=== PATIENT | male | born 1980 | race African-American/Black ===

== ENCOUNTER 2020-03-13 16:17 | Emergency (ER) | payer MEDICAID ==
[~2020-03-13] VITALS: Ht 175.3 cm; Wt 971.7 kg
[2020-03-13 16:56] VITALS: BP 128/70
== END 2020-03-13 17:05 | disposition home or self-care (01) ==
LOC: ER 16:17
DX: B34.9 Viral infection, unspecified (principal); R05 Cough; F12.10 Cannabis abuse, uncomplicated
CPT/HCPCS: 99283

== ENCOUNTER 2020-06-21 20:32 | Emergency (ER) | payer MEDICAID ==
[~2020-06-21] VITALS: Ht 172.7 cm; Wt 80.0 kg
[2020-06-22 00:39] LABS: BASOPHILS % 0.4 % (0.0-2.0); CHLORIDE 101 mEq/L (98-107); EOSINOPHILS % 0.7 % (0.0-5.0); HEMATOCRIT. 45.2 % (42.0-52.0); HEMOGLOBIN. 15.1 g/dL (14.0-18.0); LYMPHOCYTES % 24.2 % (20.0-50.0); MEAN CORPUSCULAR HEMOGLOBIN 28.5 pg (28.0-32.0); MEAN CORPUSCULAR VOLUME 85.4 fL (80.0-94.0); MEAN PLATELET VOLUME 7.9 fl (7.4-10.4); MONOCYTES % 12.1 % (2.0-8.0); NEUTROPHILS % 62.6 % (40.0-76.0); PLATELET 243 x1000/uL (130-400); RED BLOOD CELL COUNT 5.29 mill/uL (4.7-6.1); RED CELL DISTRIBUTION WIDTH 15.6 % (11.6-14.6)
[2020-06-22 00:44] LABS: ETHANOL BLOOD < 10 mg/dL
[2020-06-22 07:03] LABS: CLARITY URINE CLEAR (CLEAR); COLOR URINE YELLOW (YELLOW); KETONES URINE 1+ (NEGATIVE); LEUKOCYTE ESTERASE URINE NEGATIVE (NEGATIVE); NITRITE URINE NEGATIVE (NEGATIVE); OCCULT BLOOD URINE NEGATIVE (NEGATIVE); PROTEIN URINE NEGATIVE (NEGATIVE); SPECIFIC GRAVITY URINE 1.018 (1.005-1.030)
[2020-06-22 07:22] LABS: *AMPHETAMINES SCREEN URINE NEGATIVE (NEGATIVE); *BARBITURATES SCREEN URINE NEGATIVE (NEGATIVE); *BENZODIAZEPINES SCREEN URINE NEGATIVE (NEGATIVE); *COCAINE SCREEN URINE NEGATIVE (NEGATIVE); CANNABINOID URINE SCREEN PRESUMTIVE POSITIVE (NEGATIVE); METHADONE URINE SCREEN NEGATIVE (NEGATIVE); OPIATES URINE SCREEN NEGATIVE (NEGATIVE); PHENCYCLIDINE URINE SCREEN PRESUMTIVE POSITIVE (NEGATIVE)
[2020-06-22 07:52] VITALS: BP 123/74
== END 2020-06-22 11:04 | disposition home or self-care (01) ==
LOC: ER 20:32
DX: Z00.8 Encounter for other general examination (principal); F19.10 Other psychoactive substance abuse, uncomplicated
CPT/HCPCS: 36415; 80053; 80305; 80307; 80320; 80329; 81003; 85025; 93005; 99284; G0480

== ENCOUNTER 2021-05-16 21:48 | Emergency (ER) | payer MEDICAID ==
[~2021-05-16] VITALS: Ht 175.3 cm; Wt 82.0 kg
[2021-05-16] MEDS ORDERED: HALOPERIDOL LACTATE 5MG/ML VIAL IM STA (22:34)
[2021-05-16] MEDS ORDERED: LORAZEPAM 2MG/ML CPJ IM STA (22:34)
[2021-05-16] MEDS ORDERED: DIPHENHYDRAMINE 50MG/ML VIAL IM STA (22:34)
[2021-05-16 23:43] LABS: CHLORIDE 106 mEq/L (98-107)
[2021-05-16 23:43] LABS: CLARITY URINE CLEAR (CLEAR); COLOR URINE YELLOW (YELLOW); KETONES URINE NEGATIVE (NEGATIVE); LEUKOCYTE ESTERASE URINE TRACE (NEGATIVE); NITRITE URINE NEGATIVE (NEGATIVE); OCCULT BLOOD URINE 1+ (NEGATIVE); PROTEIN URINE NEGATIVE (NEGATIVE); SPECIFIC GRAVITY URINE 1.012 (1.005-1.030)
[2021-05-16] MEDS ORDERED: LORAZEPAM 2MG/ML CPJ IV ONE (23:45)
[2021-05-16 23:48] LABS: ETHANOL BLOOD < 10 mg/dL
[2021-05-16 23:59] LABS: *AMPHETAMINES SCREEN URINE NEGATIVE (NEGATIVE); *BARBITURATES SCREEN URINE NEGATIVE (NEGATIVE); *BENZODIAZEPINES SCREEN URINE NEGATIVE (NEGATIVE)
[2021-05-17] LABS: *COCAINE SCREEN URINE NEGATIVE (NEGATIVE); CANNABINOID URINE SCREEN NEGATIVE (NEGATIVE); OPIATES URINE SCREEN NEGATIVE (NEGATIVE); PHENCYCLIDINE URINE SCREEN PRESUMTIVE POSITIVE (NEGATIVE)
[2021-05-17 00:02] LABS: METHADONE URINE SCREEN NEGATIVE (NEGATIVE)
[2021-05-17 00:18] LABS: BASOPHILS % 0.9 % (0.0-2.0); EOSINOPHILS % 2.1 % (0.0-5.0); HEMATOCRIT. 43.7 % (42.0-52.0); HEMOGLOBIN. 14.5 g/dL (14.0-18.0); LYMPHOCYTES % 36.7 % (20.0-50.0); MEAN CORPUSCULAR HEMOGLOBIN 28.4 pg (28.0-32.0); MONOCYTES % 9.5 % (2.0-8.0); NEUTROPHILS % 50.8 % (40.0-76.0); PLATELET 255 x1000/uL (130-400); RED BLOOD CELL COUNT 5.09 mill/uL (4.7-6.1); RED CELL DISTRIBUTION WIDTH 14.3 % (11.6-14.6)
[2021-05-17 09:50] VITALS: BP 112/86
== END 2021-05-17 09:51 | disposition home or self-care (01) ==
LOC: ER 21:48
DX: R56.9 Unspecified convulsions (principal)
CPT/HCPCS: 36415; 70450; 71045; 80053; 80305; 80307; 80320; 80329; 81003; 85025; 93005; 96372; 96374; 99285; J1200; J1630; J2060; Z7610; G0480

== ENCOUNTER 2021-05-17 15:34 | Emergency (ER) | payer MEDICAID ==
[~2021-05-17] VITALS: Ht 175.3 cm; Wt 65.0 kg
[2021-05-17 15:38] VITALS: BP 110/60
== END 2021-05-17 22:22 | disposition home or self-care (01) ==
LOC: ER 15:34
DX: Z00.00 Encounter for general adult medical examination without abnormal findings (principal); R46.2 Strange and inexplicable behavior; R56.9 Unspecified convulsions
CPT/HCPCS: 99281

== ENCOUNTER 2021-05-17 22:29 | Emergency (ER) | payer MEDICAID ==
[~2021-05-17] VITALS: Ht 182.9 cm; Wt 64.0 kg
[2021-05-17] MEDS ORDERED: LORAZEPAM 2MG/ML CPJ IV PRN (23:00)
[2021-05-17 23:22] LABS: BASOPHILS % 0.7 % (0.0-2.0); EOSINOPHILS % 2.2 % (0.0-5.0); HEMATOCRIT. 44.3 % (42.0-52.0); HEMOGLOBIN. 14.7 g/dL (14.0-18.0); MEAN CORPUSCULAR HEMOGLOBIN 28.6 pg (28.0-32.0); MEAN CORPUSCULAR VOLUME 86.6 fL (80.0-94.0); MEAN PLATELET VOLUME 7.7 fl (7.4-10.4); MONOCYTES % 7.9 % (2.0-8.0); NEUTROPHILS % 57.2 % (40.0-76.0); PLATELET 259 x1000/uL (130-400); RED BLOOD CELL COUNT 5.11 mill/uL (4.7-6.1); RED CELL DISTRIBUTION WIDTH 14.2 % (11.6-14.6)
[2021-05-17 23:29] LABS: CHLORIDE 104 mEq/L (98-107)
[2021-05-17 23:33] LABS: ETHANOL BLOOD < 10 mg/dL
[2021-05-17 23:46] LABS: CLARITY URINE CLEAR (CLEAR); COLOR URINE YELLOW (YELLOW); KETONES URINE NEGATIVE (NEGATIVE); LEUKOCYTE ESTERASE URINE NEGATIVE (NEGATIVE); NITRITE URINE NEGATIVE (NEGATIVE); OCCULT BLOOD URINE NEGATIVE (NEGATIVE); PROTEIN URINE NEGATIVE (NEGATIVE); SPECIFIC GRAVITY URINE 1.021 (1.005-1.030); UROBILINOGEN URINE 0.2 E.U./dL (0.2-1.0)
[2021-05-18 00:16] LABS: *BENZODIAZEPINES SCREEN URINE NEGATIVE (NEGATIVE); *COCAINE SCREEN URINE NEGATIVE (NEGATIVE); CANNABINOID URINE SCREEN NEGATIVE (NEGATIVE); METHADONE URINE SCREEN NEGATIVE (NEGATIVE); OPIATES URINE SCREEN NEGATIVE (NEGATIVE); PHENCYCLIDINE URINE SCREEN PRESUMTIVE POSITIVE (NEGATIVE)
[2021-05-18 00:31] LABS: *AMPHETAMINES SCREEN URINE NEGATIVE (NEGATIVE); *BARBITURATES SCREEN URINE NEGATIVE (NEGATIVE)
[2021-05-18 21:04] VITALS: BP 105/56
== END 2021-05-18 21:01 | disposition home or self-care (01) ==
LOC: ER 22:29
DX: R41.82 Altered mental status, unspecified (principal); G93.40 Encephalopathy, unspecified; R56.9 Unspecified convulsions; Z20.822 Contact with and (suspected) exposure to COVID-19
CPT/HCPCS: 36415; 80053; 80305; 80307; 80320; 80329; 81003; 85025; 87426; 93005; 99285; G0480

== ENCOUNTER → 2021-05-17 | Emergency (ER) | payer MEDICAID | END | disposition left against medical advice (07) | LOC: ER 12:18 | DX: Z53.21 Procedure and treatment not carried out due to patient leaving prior to being seen by health care provider (principal) ==

== ENCOUNTER 2021-09-06 18:51 | Emergency (ER) | payer MEDICAID ==
[~2021-09-06] VITALS: Ht 180.3 cm; Wt 84.0 kg
[2021-09-06] MEDS ORDERED: HYDROCODONE/ACETAMINOPHEN 10/325MG TABLET PO ONE (19:30)
[2021-09-06] MEDS ORDERED: IBUPROFEN 600MG TABLET PO ONE (19:30)
[2021-09-06] MEDS ORDERED: IBUP-2029 MT (21:40)
[2021-09-06 22:00] VITALS: BP 131/75
== END 2021-09-06 22:00 | disposition home or self-care (01) ==
LOC: ER 18:51
DX: S00.81XA Abrasion of other part of head, initial encounter (principal); S83.8X1A Sprain of other specified parts of right knee, initial encounter; G40.909 Epilepsy, unspecified, not intractable, without status epilepticus; I51.9 Heart disease, unspecified; F14.10 Cocaine abuse, uncomplicated; F11.10 Opioid abuse, uncomplicated; V18.0XXA Pedal cycle driver injured in noncollision transport accident in nontraffic accident, initial encounter; Y93.89 Activity, other specified; Y92.488 Other paved roadways as the place of occurrence of the external cause
CPT/HCPCS: 73562; 99283

== ENCOUNTER 2021-11-23 07:00 | Emergency (ER) | payer MEDICAID ==
[~2021-11-23] VITALS: Ht 175.3 cm; Wt 78.0 kg
[~2021-11-23 07:00] MED LIST: IBUP-2029 MT
[2021-11-23 07:08] VITALS: BP 149/87
[2021-11-23 07:54] LABS: BASOPHILS % 0.7 % (0.0-2.0); CHLORIDE 107 mEq/L (98-107); EOSINOPHILS % 0.4 % (0.0-5.0); HEMATOCRIT. 43.8 % (42.0-52.0); HEMOGLOBIN. 14.1 g/dL (14.0-18.0); LYMPHOCYTES % 28.6 % (20.0-50.0); MEAN CORPUSCULAR HEMOGLOBIN 27.3 pg (28.0-32.0); MEAN CORPUSCULAR VOLUME 84.5 fL (80.0-94.0); MEAN PLATELET VOLUME 7.9 fl (7.4-10.4); MONOCYTES % 7.9 % (2.0-8.0); NEUTROPHILS % 62.4 % (40.0-76.0); PLATELET 221 x1000/uL (130-400); RED BLOOD CELL COUNT 5.18 mill/uL (4.7-6.1); RED CELL DISTRIBUTION WIDTH 14.5 % (11.6-14.6)
[2021-11-23 08:00] LABS: ETHANOL BLOOD < 10 mg/dL
[2021-11-23 08:25] LABS: CLARITY URINE CLEAR (CLEAR); COLOR URINE YELLOW (YELLOW); KETONES URINE 2+ (NEGATIVE); LEUKOCYTE ESTERASE URINE NEGATIVE (NEGATIVE); NITRITE URINE NEGATIVE (NEGATIVE); OCCULT BLOOD URINE NEGATIVE (NEGATIVE); PROTEIN URINE NEGATIVE (NEGATIVE)
[2021-11-23 08:43] LABS: *AMPHETAMINES SCREEN URINE NEGATIVE (NEGATIVE); *BARBITURATES SCREEN URINE NEGATIVE (NEGATIVE); *BENZODIAZEPINES SCREEN URINE NEGATIVE (NEGATIVE)
[2021-11-23 08:44] LABS: *COCAINE SCREEN URINE NEGATIVE (NEGATIVE); CANNABINOID URINE SCREEN NEGATIVE (NEGATIVE); METHADONE URINE SCREEN NEGATIVE (NEGATIVE); OPIATES URINE SCREEN NEGATIVE (NEGATIVE); PHENCYCLIDINE URINE SCREEN PRESUMTIVE POSITIVE (NEGATIVE)
== END 2021-11-23 08:55 | disposition home or self-care (01) ==
LOC: ER 07:00
DX: R55 Syncope and collapse (principal); F14.10 Cocaine abuse, uncomplicated; Z86.59 Personal history of other mental and behavioral disorders
CPT/HCPCS: 36415; 71045; 80053; 80305; 80320; 81003; 83880; 84484; 85025; 93005; 99285; Z7610; G0480

== ENCOUNTER 2021-12-03 20:34 | Emergency (ER) | payer MEDICAID ==
[~2021-12-03] VITALS: Ht 170.2 cm; Wt 86.0 kg
[2021-12-03 20:40] VITALS: BP 128/87
[2021-12-03] MEDS ORDERED: IBUPROFEN 400MG TABLET PO ONE (21:00)
[2021-12-03] MEDS ORDERED: IBUP-2028 MT (22:10)
== END 2021-12-03 22:35 | disposition home or self-care (01) ==
LOC: ER 20:34
DX: M25.511 Pain in right shoulder (principal); G40.909 Epilepsy, unspecified, not intractable, without status epilepticus; I51.9 Heart disease, unspecified; F14.10 Cocaine abuse, uncomplicated; F11.10 Opioid abuse, uncomplicated
CPT/HCPCS: 73030; 99283; A4565

== ENCOUNTER 2021-12-04 00:10 | Emergency (ER) | payer MEDICAID ==
[~2021-12-04] VITALS: Ht 188 cm; Wt 97.0 kg
[~2021-12-04 00:10] MED LIST changes: +IBUP-2028 MT
[2021-12-04 00:25] VITALS: BP 145/89
[2021-12-04] MEDS ORDERED: ACETAMINOPHEN 325MG TABLET PO ONE (03:00)
== END 2021-12-04 03:50 | disposition home or self-care (01) ==
LOC: ER 00:10
DX: S62.92XA Unspecified fracture of left hand, initial encounter for closed fracture (principal); X58.XXXA Exposure to other specified factors, initial encounter; Y93.89 Activity, other specified; Y92.89 Other specified places as the place of occurrence of the external cause; Y99.8 Other external cause status
CPT/HCPCS: 73130; 99283

== ENCOUNTER 2022-04-24 17:15 | Emergency (ER) | payer MEDICAID, OTHER ==
[~2022-04-24] VITALS: Ht 175.3 cm; Wt 80.0 kg
[2022-04-24 17:17] VITALS: BP 126/58
[2022-04-24] MEDS ORDERED: LORAZEPAM 2MG/ML CPJ IV STA (18:42)
[2022-04-24] MEDS ORDERED: SODIUM CHLORIDE 0.9% 1,000 ML IV ONE (18:45)
== END 2022-04-24 22:00 | disposition left against medical advice (07) ==
LOC: ER 17:15
DX: F16.10 Hallucinogen abuse, uncomplicated (principal); G93.40 Encephalopathy, unspecified; Z59.00 Homelessness unspecified
CPT/HCPCS: 99283; J7030

== ENCOUNTER 2022-06-21 03:37 | Emergency (ER) | payer MEDICAID, OTHER ==
[~2022-06-21] VITALS: Ht 175.3 cm; Wt 73.0 kg
[2022-06-21 04:00] VITALS: BP 126/78
[2022-06-21] MEDS ORDERED: IBUP-2029 MT (11:01)
== END 2022-06-21 04:00 | disposition home or self-care (01) ==
LOC: ER 03:37
DX: H10.213 Acute toxic conjunctivitis, bilateral (principal); F19.10 Other psychoactive substance abuse, uncomplicated
CPT/HCPCS: 99283

== ENCOUNTER 2022-06-21 04:45 | Emergency (ER) | payer OTHER ==
[~2022-06-21] VITALS: Ht 182.9 cm; Wt 95.0 kg
[2022-06-21] MEDS ORDERED: KETOROLAC 60MG/2ML VIAL IM ONE (10:45)
[2022-06-21] MEDS ORDERED: IBUP-2029 MT (11:01)
[2022-06-21 11:08] VITALS: BP 115/70
== END 2022-06-21 11:19 | disposition home or self-care (01) ==
LOC: ER 04:45
DX: M25.551 Pain in right hip (principal); Z90.49 Acquired absence of other specified parts of digestive tract; W18.30XA Fall on same level, unspecified, initial encounter; Y93.89 Activity, other specified; Y92.89 Other specified places as the place of occurrence of the external cause; Y99.8 Other external cause status
CPT/HCPCS: 72170; 73552; 96372; 99284; J1885

== ENCOUNTER 2023-08-07 17:45 | Emergency (ER) | payer OTHER ==
[~2023-08-07] VITALS: Ht 177.8 cm; Wt 86.0 kg
[2023-08-07 17:53] VITALS: BP 142/80; O2SAT 100
[2023-08-08 00:38] VITALS: PULSE 68; RESP 16; TEMP 98.2
== END 2023-08-08 00:40 | disposition home or self-care (01) ==
LOC: ER 17:45
DX: S00.81XA Abrasion of other part of head, initial encounter (principal); S00.01XA Abrasion of scalp, initial encounter; M54.2 Cervicalgia; F14.90 Cocaine use, unspecified, uncomplicated; F11.90 Opioid use, unspecified, uncomplicated; F10.20 Alcohol dependence, uncomplicated; Z90.49 Acquired absence of other specified parts of digestive tract; Z79.899 Other long term (current) drug therapy; W19.XXXA Unspecified fall, initial encounter; Y93.89 Activity, other specified; Y92.815 Train as the place of occurrence of the external cause; Y99.8 Other external cause status; Y90.9 Presence of alcohol in blood, level not specified
CPT/HCPCS: 73130; 99284

== ENCOUNTER 2023-08-08 03:55 | Emergency (ER) | payer OTHER ==
[~2023-08-08] VITALS: Ht 182.9 cm; Wt 87.0 kg
[2023-08-08 03:59] VITALS: TEMP 97.8; O2SAT 99
[2023-08-08 07:30] VITALS: BP 122/92; PULSE 77; RESP 20
[2023-08-08] MEDS ORDERED: KETOROLAC 60MG/2ML VIAL IM ONE (07:30)
== END 2023-08-08 07:48 | disposition home or self-care (01) ==
LOC: ER 03:55
DX: M25.50 Pain in unspecified joint (principal); F14.10 Cocaine abuse, uncomplicated; Z90.49 Acquired absence of other specified parts of digestive tract
CPT/HCPCS: 96372; 99283; J1885; Z7610

== ENCOUNTER 2023-08-19 19:02 | Emergency (ER) | payer OTHER ==
[~2023-08-19] VITALS: Ht 175.3 cm; Wt 77.0 kg
[2023-08-19 19:16] VITALS: BP 140/83; PULSE 90; RESP 18; TEMP 98.3; O2SAT 100
== END 2023-08-19 22:00 | disposition left against medical advice (07) ==
LOC: ER 21:43
DX: R10.819 Abdominal tenderness, unspecified site (principal); R10.9 Unspecified abdominal pain
CPT/HCPCS: 99283

== ENCOUNTER 2023-08-20 00:42 | Emergency (ER) | payer OTHER ==
[~2023-08-20] VITALS: Ht 170.2 cm; Wt 83.0 kg
[2023-08-20 00:58] VITALS: O2SAT 97
[2023-08-20 01:21] LABS: BASOPHILS % 0.5 % (0.0-2.0); EOSINOPHILS % 1.4 % (0.0-5.0); HEMATOCRIT. 39.6 % (42.0-52.0); HEMOGLOBIN. 12.9 g/dL (14.0-18.0); LYMPHOCYTES % 26.5 % (20.0-50.0); MEAN CORPUSCULAR HEMOGLOBIN 27.8 pg (28.0-32.0); MEAN CORPUSCULAR HGB CONC 32.6 g/dL (31.0-37.0); MEAN CORPUSCULAR VOLUME 85.1 fL (80.0-94.0); MEAN PLATELET VOLUME 7.7 fl (7.4-10.4); MONOCYTES % 13.2 % (2.0-8.0); NEUTROPHILS % 58.4 % (40.0-76.0); PLATELET 252 x1000/uL (130-400); RED BLOOD CELL COUNT 4.66 mill/uL (4.7-6.1); RED CELL DISTRIBUTION WIDTH 15.1 % (11.6-14.6); WHITE BLOOD COUNT 9.7 x1000/uL (4.5-11.0)
[2023-08-20 01:35] LABS: CHLORIDE 108 mEq/L (98-107); INDEX HEMOLYSI 1 (1-3); INDEX ICTERIC 1 (1-4); INDEX LIPEMIC 1 (1-3); POTASSIUM 3.3 mEq/L (3.5-5.1); SODIUM 139 mEq/L (136-145)
[2023-08-20 01:42] LABS: ALANINE AMINOTRANSFERASE 249 IU/L (13-61); ALBUMIN 3.3 g/dL (3.4-5.0); ASPARTATE AMINOTRANSFERASE 86 IU/L (15-37); BILIRUBIN TOTAL 0.3 mg/dL (0.1-1.0); CALCIUM 8.2 mg/dL (8.5-10.1); CARBON DIOXIDE 27 mEq/L (21-32); CREATININE 0.7 mg/dL (0.6-1.3); GLUCOSE 96 mg/dL (70-105); PROTEIN TOTAL 6.9 g/dL (6.0-8.3); UREA NITROGEN BLOOD 15 mg/dL (7-21)
[2023-08-20] MEDS ORDERED: ONDANSETRON HCL 4MG/2ML INJ IV ONE (03:30)
[2023-08-20] MEDS ORDERED: MORPHINE SULFATE 4 MG/ML CPJ (NOT FOR IM USE) IV ONE (03:30)
[2023-08-20 03:43] LABS: CLARITY URINE CLEAR (CLEAR); COLOR URINE DARK YELLOW (YELLOW); GLUCOSE URINE NEGATIVE (NEGATIVE); KETONES URINE NEGATIVE (NEGATIVE); LEUKOCYTE ESTERASE URINE NEGATIVE (NEGATIVE); NITRITE URINE NEGATIVE (NEGATIVE); OCCULT BLOOD URINE NEGATIVE (NEGATIVE); PH URINE 5.5 (4.5-8.0); PROTEIN URINE TRACE (NEGATIVE); SPECIFIC GRAVITY URINE 1.034 (1.005-1.030)
[2023-08-20 03:46] LABS: BACTERIA URINE NONE SEEN; RBC URINE 0-2 /hpf (0-2); SQUAMOUS EPITHELIAL CELL URINE NONE SEEN /lpf (RARE/1+); WBC URINE 0-2 /hpf (0-2); YEAST URINE NONE SEEN
[2023-08-20] MEDS ORDERED: DIATR MEGLU/DIATRIZOATE SOLN 30ML ONE (05:30)
[2023-08-20] MEDS ORDERED: MORPHINE SULFATE 4 MG/ML CPJ (NOT FOR IM USE) IV NR (06:00)
[2023-08-20] MEDS ORDERED: KCL 20MEQ/100ML PREMIX 100 ML IV NR (06:00)
[2023-08-20 10:34] VITALS: BP 117/89; PULSE 68; RESP 20; TEMP 98
[2023-08-20] MEDS ORDERED: IOHEXOL-300 100 ML BOTTLE ONE (11:56)
== END 2023-08-20 10:51 | disposition short-term general hospital (02) ==
LOC: ER 01:29 → CANBEDREQ 09:41 → ER 10:51
DX: R10.9 Unspecified abdominal pain (principal); E87.6 Hypokalemia; R74.01 Elevation of levels of liver transaminase levels; E78.00 Pure hypercholesterolemia, unspecified; F14.10 Cocaine abuse, uncomplicated
CPT/HCPCS: 80053; 81003; 83690; 85025; 36415; 74176; 74177; 76705; 96365; 96375; 96376; 99285; Q9967; J2405; J3480; J2270; Q9963; Z7610 ×3

== ENCOUNTER 2023-08-25 17:49 | Emergency (ER) | payer OTHER ==
[~2023-08-25] VITALS: Ht 180.3 cm; Wt 79.0 kg
[2023-08-25 17:54] VITALS: O2SAT 98
[2023-08-25 20:25] LABS: BASOPHILS % 0.5 % (0.0-2.0); EOSINOPHILS % 2.5 % (0.0-5.0); HEMATOCRIT. 42.2 % (42.0-52.0); HEMOGLOBIN. 13.9 g/dL (14.0-18.0); LYMPHOCYTES % 31.8 % (20.0-50.0); MEAN CORPUSCULAR HEMOGLOBIN 28.2 pg (28.0-32.0); MEAN CORPUSCULAR HGB CONC 32.8 g/dL (31.0-37.0); MEAN CORPUSCULAR VOLUME 85.8 fL (80.0-94.0); MEAN PLATELET VOLUME 7.7 fl (7.4-10.4); MONOCYTES % 8.8 % (2.0-8.0); NEUTROPHILS % 56.4 % (40.0-76.0); PLATELET 304 x1000/uL (130-400); RED BLOOD CELL COUNT 4.92 mill/uL (4.7-6.1); RED CELL DISTRIBUTION WIDTH 15.5 % (11.6-14.6); WHITE BLOOD COUNT 8.6 x1000/uL (4.5-11.0)
[2023-08-25 20:32] LABS: CHLORIDE 107 mEq/L (98-107); INDEX HEMOLYSI 1 (1-3); INDEX ICTERIC 1 (1-4); INDEX LIPEMIC 1 (1-3); POTASSIUM 3.6 mEq/L (3.5-5.1); SODIUM 138 mEq/L (136-145)
[2023-08-25 20:35] LABS: INR 0.9; PROTHROMBIN TIME 10.1 sec (9.6-11.0)
[2023-08-25 20:42] LABS: ALANINE AMINOTRANSFERASE 159 IU/L (13-61); ALBUMIN 3.6 g/dL (3.4-5.0); ASPARTATE AMINOTRANSFERASE 74 IU/L (15-37); BILIRUBIN TOTAL 0.4 mg/dL (0.1-1.0); CALCIUM 9.1 mg/dL (8.5-10.1); CARBON DIOXIDE 27 mEq/L (21-32); CREATININE 0.8 mg/dL (0.6-1.3); ETHANOL BLOOD < 10 mg/dL (<10); GLUCOSE 93 mg/dL (70-105); PROTEIN TOTAL 7.4 g/dL (6.0-8.3); UREA NITROGEN BLOOD 14 mg/dL (7-21)
[2023-08-25] MEDS ORDERED: KETOROLAC 15MG/ML VIAL IV ONE (20:45)
[2023-08-25] MEDS ORDERED: ONDANSETRON HCL 4MG/2ML INJ IV STA (20:45)
[2023-08-25] MEDS ORDERED: KETOROLAC 30MG/ML VIAL IV NR (21:00)
[2023-08-25] MEDS ORDERED: SODIUM CHLORIDE 0.9% 1,000 ML IV ONE (21:15)
[2023-08-25 23:46] LABS: CLARITY URINE CLEAR (CLEAR); COLOR URINE YELLOW (YELLOW); GLUCOSE URINE NEGATIVE (NEGATIVE); KETONES URINE NEGATIVE (NEGATIVE); LEUKOCYTE ESTERASE URINE NEGATIVE (NEGATIVE); NITRITE URINE NEGATIVE (NEGATIVE); OCCULT BLOOD URINE NEGATIVE (NEGATIVE); PH URINE 5.5 (4.5-8.0); PROTEIN URINE NEGATIVE (NEGATIVE); SPECIFIC GRAVITY URINE 1.028 (1.005-1.030)
[2023-08-25 23:56] LABS: *AMPHETAMINES SCREEN URINE NEGATIVE (NEGATIVE); *BARBITURATES SCREEN URINE NEGATIVE (NEGATIVE); *BENZODIAZEPINES SCREEN URINE NEGATIVE (NEGATIVE); *COCAINE SCREEN URINE NEGATIVE (NEGATIVE); CANNABINOID URINE SCREEN PRESUMTIVE POSITIVE (NEGATIVE); ECSTASY MDMA SCREEN URINE NEGATIVE (NEGATIVE); OPIATES URINE SCREEN NEGATIVE (NEGATIVE); PHENCYCLIDINE URINE SCREEN PRESUMTIVE POSITIVE (NEGATIVE)
[2023-08-26 00:14] VITALS: BP 133/79; PULSE 81; RESP 18; TEMP 98.2
[2023-08-26] MEDS ORDERED: ONDANSETRON HCL 4MG/2ML INJ IV NR (00:15)
== END 2023-08-26 00:33 | disposition short-term general hospital (02) ==
LOC: ER 17:59
DX: R10.84 Generalized abdominal pain (principal); R11.10 Vomiting, unspecified; R19.7 Diarrhea, unspecified; E78.00 Pure hypercholesterolemia, unspecified; Z79.899 Other long term (current) drug therapy
CPT/HCPCS: 80053; 80305; 81003; 80320; 83690; 85025; 85610; 36415; 74176; 99285; 96374; 96375; J7030; J1885; J2405; G0480

== ENCOUNTER 2023-10-19 23:09 | Emergency (ER) | payer OTHER ==
[~2023-10-19] VITALS: Ht 180.3 cm; Wt 86.0 kg
[2023-10-19 23:26] VITALS: BP 139/82; PULSE 62; RESP 16; TEMP 98.3; O2SAT 99
[2023-10-20 06:39] LABS: BASOPHILS % 0.9 % (0.0-2.0); EOSINOPHILS % 3.1 % (0.0-5.0); HEMATOCRIT. 44.8 % (42.0-52.0); HEMOGLOBIN. 14.6 g/dL (14.0-18.0); MEAN CORPUSCULAR HEMOGLOBIN 28.1 pg (28.0-32.0); MEAN CORPUSCULAR HGB CONC 32.5 g/dL (31.0-37.0); MEAN CORPUSCULAR VOLUME 86.5 fL (80.0-94.0); MEAN PLATELET VOLUME 7.9 fl (7.4-10.4); MONOCYTES % 8.7 % (2.0-8.0); NEUTROPHILS % 49.3 % (40.0-76.0); PLATELET 262 x1000/uL (130-400); RED BLOOD CELL COUNT 5.18 mill/uL (4.7-6.1); RED CELL DISTRIBUTION WIDTH 14.9 % (11.6-14.6); WHITE BLOOD COUNT 6.9 x1000/uL (4.5-11.0)
[2023-10-20 07:19] LABS: ALANINE AMINOTRANSFERASE 27 IU/L (10-49); ALBUMIN 4.5 g/dL (3.2-4.8); ASPARTATE AMINOTRANSFERASE 34 IU/L (<34); BILIRUBIN TOTAL 0.6 mg/dL (0.1-1.0); CALCIUM 9.8 mg/dL (8.7-10.4); CARBON DIOXIDE 32 mEq/L (21-32); CHLORIDE 104 mEq/L (98-107); CREATININE 0.8 mg/dL (0.6-1.3); GLUCOSE 94 mg/dL (70-105); PROTEIN TOTAL 7.1 g/dL (6.0-8.3); SODIUM 141 mEq/L (136-145); TROPONIN I HIGH SENSITIVITY 5 ng/L (3.0-53); UREA NITROGEN BLOOD 12 mg/dL (9-23)
== END 2023-10-20 09:49 | disposition home or self-care (01) ==
LOC: ER 23:09 → CANBEDREQ 10-20 08:57 → ER 10-20 09:49
DX: R60.0 Localized edema (principal); E78.00 Pure hypercholesterolemia, unspecified
CPT/HCPCS: 99285; 80053; 83880; 85025; 84484; 36415; 71045; 93970; 93005; Z7610

== ENCOUNTER 2024-05-11 11:14 | Emergency (ER) | payer OTHER ==
[~2024-05-11] VITALS: Ht 175.3 cm; Wt 87.0 kg
[2024-05-11 11:16] VITALS: O2SAT 100
[2024-05-11 13:00] VITALS: BP 120/70; PULSE 80; RESP 15; TEMP 98.4
[2024-05-11] MEDS ORDERED: SODIUM CHLORIDE 0.9% 1,000 ML IV ONE (13:00)
[2024-05-11] MEDS: LOPERAMIDE 2MG/15ML UDC PO ONE (14:19)
== END 2024-05-11 14:19 | disposition left against medical advice (07) ==
LOC: ER 11:14
DX: K43.9 Ventral hernia without obstruction or gangrene (principal); R10.9 Unspecified abdominal pain; E78.00 Pure hypercholesterolemia, unspecified; Z98.890 Other specified postprocedural states
CPT/HCPCS: 99284; 74176; 71045; J7030

== ENCOUNTER 2024-06-24 16:33 | Emergency (ER) | payer OTHER ==
[~2024-06-24] VITALS: Ht 182.9 cm; Wt 95.0 kg
[2024-06-24 16:38] VITALS: O2SAT 100
[2024-06-24] MEDS ORDERED: KETOROLAC 15MG/ML VIAL IM ONE (17:00)
[2024-06-24] MEDS ORDERED: NAPR-1176 MT (18:32)
[2024-06-24 18:45] VITALS: BP 119/81; PULSE 99; RESP 16; TEMP 98.1
[2024-06-24] MEDS ORDERED: KETOROLAC 15MG/ML VIAL IM NR (18:45)
== END 2024-06-24 19:03 | disposition home or self-care (01) ==
LOC: ER 16:33
DX: M54.2 Cervicalgia (principal); E78.00 Pure hypercholesterolemia, unspecified; Z98.890 Other specified postprocedural states
CPT/HCPCS: 72040; 76705; 99284; J1885; Z7610

== ENCOUNTER 2024-08-15 17:37 | Emergency (ER) | payer OTHER ==
[~2024-08-15] VITALS: Ht 182.9 cm; Wt 90.0 kg
[~2024-08-15 17:37] MED LIST changes: +NAPR-1176 MT
[2024-08-15 17:38] VITALS: O2SAT 98
[2024-08-15] MEDS: ACETAMINOPHEN 325MG TABLET PO ONE (19:49)
[2024-08-15] MEDS: IBUPROFEN 800MG TABLET PO ONE (19:49)
[2024-08-15] MEDS ORDERED: IBUP-2029 MT (20:14)
[2024-08-15] MEDS ORDERED: TOPUD MT (20:14)
[2024-08-15 20:55] VITALS: BP 117/75; PULSE 78; RESP 14; TEMP 36.50292; O2SAT 99
== END 2024-08-15 20:49 | disposition home or self-care (01) ==
LOC: ER 17:37
DX: M54.50 Low back pain, unspecified (principal); E78.00 Pure hypercholesterolemia, unspecified; M47.816 Spondylosis without myelopathy or radiculopathy, lumbar region; Z79.899 Other long term (current) drug therapy
CPT/HCPCS: 72100; 99283

== ENCOUNTER 2024-08-20 09:13 | Emergency (ER) | payer OTHER ==
[~2024-08-20] VITALS: Ht 185.4 cm; Wt 78.0 kg
[~2024-08-20 09:13] MED LIST changes: +TOPUD MT
[2024-08-20 09:26] VITALS: O2SAT 98
[2024-08-20] MEDS: OXYCODONE HCL/ACETAMINOPHEN 5/325MG TABLET PO ONE (09:39)
[2024-08-20] MEDS ORDERED: MELO-105 MT (11:51)
[2024-08-20] MEDS ORDERED: P50 MT (11:59)
[2024-08-20] MEDS ORDERED: HYDR-4001 MT (11:59)
[2024-08-20 12:25] VITALS: BP 138/70; PULSE 68; RESP 20; TEMP 36.66960; O2SAT 98
== END 2024-08-20 12:30 | disposition home or self-care (01) ==
LOC: ER 09:21
DX: S30.0XXA Contusion of lower back and pelvis, initial encounter (principal); S80.02XA Contusion of left knee, initial encounter; W01.0XXA Fall on same level from slipping, tripping and stumbling without subsequent striking against object, initial encounter; Y93.89 Activity, other specified; Y92.89 Other specified places as the place of occurrence of the external cause; Y99.8 Other external cause status
CPT/HCPCS: 72100; 72220; 73560; 99284; Z7610 ×2

== ENCOUNTER 2024-08-27 21:05 | Emergency (ER) | payer OTHER ==
[~2024-08-27] VITALS: Ht 188 cm; Wt 120.0 kg
[~2024-08-27 21:05] MED LIST changes: +HYDR-4001 MT; +MELO-105 MT; +P50 MT
[2024-08-27 21:11] VITALS: O2SAT 96
[2024-08-27 22:29] LABS: BASOPHILS % 0.9 % (0.0-2.0); EOSINOPHILS % 2.6 % (0.0-5.0); HEMATOCRIT. 41.5 % (42.0-52.0); HEMOGLOBIN. 13.6 g/dL (14.0-18.0); LYMPHOCYTES % 36.2 % (20.0-50.0); MEAN CORPUSCULAR HEMOGLOBIN 28.5 pg (28.0-32.0); MEAN CORPUSCULAR HGB CONC 32.8 g/dL (31.0-37.0); MEAN CORPUSCULAR VOLUME 86.8 fL (80.0-94.0); MEAN PLATELET VOLUME 7.9 fl (7.4-10.4); MONOCYTES % 8.1 % (2.0-8.0); NEUTROPHILS % 52.2 % (40.0-76.0); PLATELET 245 x1000/uL (130-400); RED BLOOD CELL COUNT 4.78 mill/uL (4.7-6.1); RED CELL DISTRIBUTION WIDTH 15.8 % (11.6-14.6); WHITE BLOOD COUNT 7.2 x1000/uL (4.5-11.0)
[2024-08-27 22:31] LABS: CHLORIDE 106 mEq/L (98-107); SODIUM 140 mEq/L (136-145)
[2024-08-27 22:32] LABS: CALCIUM 9.1 mg/dL (8.7-10.4); CARBON DIOXIDE 29 mEq/L (21-32)
[2024-08-27 22:36] LABS: INR 0.9; PROTHROMBIN TIME 9.8 sec (9.6-11.0)
[2024-08-27 22:37] LABS: CREATININE 0.9 mg/dL (0.6-1.3); GLUCOSE 100 mg/dL (70-105); UREA NITROGEN BLOOD 14 mg/dL (9-23)
[2024-08-27 22:40] LABS: TROPONIN I HIGH SENSITIVITY < 4 ng/L (3.0-53)
[2024-08-27] MEDS: KETOROLAC 15MG/ML VIAL IV ONE (22:40)
[2024-08-27 23:00] VITALS: TEMP 36.83628
[2024-08-28 00:25] LABS: CLARITY URINE CLEAR (CLEAR); COLOR URINE YELLOW (YELLOW); GLUCOSE URINE NEGATIVE (NEGATIVE); KETONES URINE NEGATIVE (NEGATIVE); LEUKOCYTE ESTERASE URINE NEGATIVE (NEGATIVE); NITRITE URINE NEGATIVE (NEGATIVE); OCCULT BLOOD URINE NEGATIVE (NEGATIVE); PH URINE 6.5 (4.5-8.0); PROTEIN URINE NEGATIVE (NEGATIVE); SPECIFIC GRAVITY URINE 1.017 (1.005-1.030)
[2024-08-28] MEDS ORDERED: DOCU-138 MT (00:41)
[2024-08-28] MEDS: DOCUSATE SODIUM 250MG CAPSULE PO ONE (00:56)
[2024-08-28 01:00] VITALS: BP 110/68; PULSE 77; RESP 13; O2SAT 99
[2024-08-28] MEDS ORDERED: IOHEXOL-300 100 ML BOTTLE ONE (03:27)
== END 2024-08-28 01:02 | disposition home or self-care (01) ==
LOC: ER 21:05
DX: K43.9 Ventral hernia without obstruction or gangrene (principal); K59.00 Constipation, unspecified; R10.13 Epigastric pain; Z79.899 Other long term (current) drug therapy
CPT/HCPCS: 99285; 74177; 96374; 71045; 80048; 83605; 83690; 85025; 85610; 84484; 36415; 93005; 81003; J1885; Q9967

== ENCOUNTER 2024-11-07 19:07 | Emergency (ER) | payer OTHER ==
[~2024-11-07] VITALS: Ht 177.8 cm; Wt 104.0 kg
[~2024-11-07 19:07] MED LIST changes: +DOCU-138 MT
[2024-11-07 19:10] VITALS: BP 129/74; PULSE 71; RESP 16; TEMP 97.7; O2SAT 98
[2024-11-07 20:45] LABS: BASOPHILS % 0.5 % (0.0-2.0); EOSINOPHILS % 2.3 % (0.0-5.0); HEMATOCRIT. 44.7 % (42.0-52.0); HEMOGLOBIN. 14.4 g/dL (14.0-18.0); LYMPHOCYTES % 35.8 % (20.0-50.0); MEAN CORPUSCULAR HEMOGLOBIN 28.6 pg (28.0-32.0); MEAN CORPUSCULAR HGB CONC 32.2 g/dL (31.0-37.0); MEAN CORPUSCULAR VOLUME 88.8 fL (80.0-94.0); MEAN PLATELET VOLUME 8.3 fl (7.4-10.4); NEUTROPHILS % 55.4 % (40.0-76.0); PLATELET 253 x1000/uL (130-400); RED BLOOD CELL COUNT 5.03 mill/uL (4.7-6.1); WHITE BLOOD COUNT 9.4 x1000/uL (4.5-11.0)
[2024-11-07 20:48] LABS: CHLORIDE 107 mEq/L (98-107); SODIUM 138 mEq/L (136-145)
[2024-11-07 20:49] LABS: CALCIUM 9.4 mg/dL (8.7-10.4); CARBON DIOXIDE 26 mEq/L (21-32)
[2024-11-07 20:54] LABS: CREATININE 0.9 mg/dL (0.6-1.3); GLUCOSE 112 mg/dL (70-105); UREA NITROGEN BLOOD 11 mg/dL (9-23)
[2024-11-07] MEDS ORDERED: HYDR453.4 TP (22:21)
== END 2024-11-07 22:37 | disposition home or self-care (01) ==
LOC: ER 19:15
DX: K64.9 Unspecified hemorrhoids (principal); E78.00 Pure hypercholesterolemia, unspecified; Z79.1 Long term (current) use of non-steroidal anti-inflammatories (NSAID); Z59.00 Homelessness unspecified; Z87.19 Personal history of other diseases of the digestive system
CPT/HCPCS: 36415; 80048; 85025; 99283

== ENCOUNTER 2024-11-27 12:06 | Emergency (ER) | payer OTHER ==
[~2024-11-27] VITALS: Ht 172.7 cm; Wt 91.0 kg
[~2024-11-27 12:06] MED LIST changes: +HYDR453.4 TP
[2024-11-27 12:18] VITALS: BP 116/68; PULSE 90; RESP 16; TEMP 98; O2SAT 96
== END 2024-11-27 19:00 | disposition left against medical advice (07) ==
LOC: ER 12:10
DX: R10.9 Unspecified abdominal pain (principal); Z53.21 Procedure and treatment not carried out due to patient leaving prior to being seen by health care provider

== ENCOUNTER 2024-12-11 19:23 | Emergency (ER) | payer OTHER ==
[~2024-12-11] VITALS: Ht 177.8 cm; Wt 90.0 kg
[2024-12-11 19:48] VITALS: BP 121/77; PULSE 63; RESP 18; TEMP 98.1; O2SAT 99
[2024-12-11 21:25] LABS: BASOPHILS % 0.6 % (0.0-2.0); EOSINOPHILS % 2.2 % (0.0-5.0); HEMATOCRIT. 41.7 % (42.0-52.0); HEMOGLOBIN. 13.5 g/dL (14.0-18.0); LYMPHOCYTES % 33.7 % (20.0-50.0); MEAN CORPUSCULAR HEMOGLOBIN 28.3 pg (28.0-32.0); MEAN CORPUSCULAR HGB CONC 32.4 g/dL (31.0-37.0); MEAN CORPUSCULAR VOLUME 87.3 fL (80.0-94.0); MEAN PLATELET VOLUME 7.9 fl (7.4-10.4); MONOCYTES % 7.2 % (2.0-8.0); NEUTROPHILS % 56.3 % (40.0-76.0); PLATELET 287 x1000/uL (130-400); RED BLOOD CELL COUNT 4.77 mill/uL (4.7-6.1); RED CELL DISTRIBUTION WIDTH 14.4 % (11.6-14.6); WHITE BLOOD COUNT 8.5 x1000/uL (4.5-11.0)
[2024-12-11 21:26] LABS: CHLORIDE 106 mEq/L (98-107); POTASSIUM 4.1 mEq/L (3.5-5.1); SODIUM 140 mEq/L (136-145)
[2024-12-11 21:27] LABS: CALCIUM 9.4 mg/dL (8.7-10.4); CARBON DIOXIDE 29 mEq/L (21-32)
[2024-12-11 21:32] LABS: CREATININE 0.9 mg/dL (0.6-1.3); GLUCOSE 98 mg/dL (70-105); UREA NITROGEN BLOOD 16 mg/dL (9-23)
[2024-12-12] MEDS ORDERED: NAPR-1176 MT (10:04)
== END 2024-12-12 00:56 | disposition left against medical advice (07) ==
LOC: ER 19:23
DX: R10.9 Unspecified abdominal pain (principal); F32.A Depression, unspecified; F20.9 Schizophrenia, unspecified; Z98.890 Other specified postprocedural states; Z53.21 Procedure and treatment not carried out due to patient leaving prior to being seen by health care provider
CPT/HCPCS: 36415; 80048; 85025

== ENCOUNTER 2024-12-12 06:23 | Emergency (ER) | payer OTHER ==
[~2024-12-12] VITALS: Ht 182.9 cm; Wt 105.0 kg
[2024-12-12 06:48] VITALS: O2SAT 100
[2024-12-12] MEDS ORDERED: ACETAMINOPHEN 325MG TABLET PO STA (07:37)
[2024-12-12] MEDS ORDERED: MAGNESIUM/ALUMINUM HYDROXIDE/SIMETHICONE 30ML UDC PO STA (07:37)
[2024-12-12] MEDS ORDERED: FAMOTIDINE 20MG TABLET PO ONE (07:45)
[2024-12-12 09:46] LABS: BASOPHILS % 0.6 % (0.0-2.0); HEMATOCRIT. 42.2 % (42.0-52.0); HEMOGLOBIN. 13.5 g/dL (14.0-18.0); LYMPHOCYTES % 34.3 % (20.0-50.0); MEAN CORPUSCULAR HEMOGLOBIN 28.4 pg (28.0-32.0); MEAN CORPUSCULAR VOLUME 88.8 fL (80.0-94.0); MEAN PLATELET VOLUME 7.7 fl (7.4-10.4); MONOCYTES % 8.1 % (2.0-8.0); PLATELET 280 x1000/uL (130-400); RED BLOOD CELL COUNT 4.75 mill/uL (4.7-6.1); RED CELL DISTRIBUTION WIDTH 14.3 % (11.6-14.6); WHITE BLOOD COUNT 7.9 x1000/uL (4.5-11.0)
[2024-12-12] MEDS: MAGNESIUM/ALUMINUM HYDROXIDE/SIMETHICONE 30ML UDC PO NR (09:49)
[2024-12-12] MEDS: FAMOTIDINE 20MG TABLET PO NR (09:49)
[2024-12-12] MEDS: ACETAMINOPHEN 325MG TABLET PO NR (09:49)
[2024-12-12 09:50] LABS: CHLORIDE 107 mEq/L (98-107); POTASSIUM 4.3 mEq/L (3.5-5.1); SODIUM 139 mEq/L (136-145)
[2024-12-12 09:51] VITALS: BP 104/70; PULSE 61; RESP 18; TEMP 36.78072; O2SAT 100
[2024-12-12 09:51] LABS: CALCIUM 9.4 mg/dL (8.7-10.4); CARBON DIOXIDE 27 mEq/L (21-32)
[2024-12-12 09:54] LABS: INR 0.9; PROTHROMBIN TIME 10.2 sec (9.6-11.0)
[2024-12-12 09:56] LABS: CREATININE 0.9 mg/dL (0.6-1.3); GLUCOSE 78 mg/dL (70-105); UREA NITROGEN BLOOD 11 mg/dL (9-23)
[2024-12-12 09:58] LABS: ALANINE AMINOTRANSFERASE 45 IU/L (10-49); ALBUMIN 4.3 g/dL (3.2-4.8); ASPARTATE AMINOTRANSFERASE 27 IU/L (<34); BILIRUBIN TOTAL 0.4 mg/dL (0.1-1.0)
[2024-12-12 10:01] LABS: BILIRUBIN DIRECT < 0.1 mg/dL (<=3.0)
[2024-12-12] MEDS ORDERED: NAPR-1176 MT (10:04)
== END 2024-12-12 10:37 | disposition home or self-care (01) ==
LOC: ER 06:23
DX: R10.9 Unspecified abdominal pain (principal); R11.0 Nausea; F17.210 Nicotine dependence, cigarettes, uncomplicated
CPT/HCPCS: 36415; 74176; 80048; 80076; 85025; 99284